=== PATIENT | female | born 1980 | race Caucasian/White ===

== ENCOUNTER → 2016-05-26 | Outpatient (CLI) | payer BC | END | disposition home or self-care (01) | LOC: LABWHC1 14:41 | PROVIDERS: ATTEND Otolaryngology | DX: T78.40XD Allergy, unspecified, subsequent encounter (principal) | CPT/HCPCS: 36415 ==

== ENCOUNTER 2017-07-01 18:01 | Emergency (ER) | payer OTHER, BC ==
[2017-07-01 18:07] VITALS: BP 157/100; PULSE 89; RESP 20; TEMP 98
[2017-07-01] MEDS ORDERED: IBUPROFEN 600 MG TAB PO STA (19:50)
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
== END 2017-07-01 21:23 | disposition home or self-care (01) ==
LOC: EC 18:01
DX: S29.012A Strain of muscle and tendon of back wall of thorax, initial encounter (principal); V47.6XXA Car passenger injured in collision with fixed or stationary object in traffic accident, initial encounter; Y92.411 Interstate highway as the place of occurrence of the external cause
CPT/HCPCS: 72050; 72072; 99283

== ENCOUNTER → 2019-10-03 | Outpatient (CLI) | payer BC ==
--- NOTE | 2019-10-17 07:51 | MM ---
Reason for exam: screening (asymptomatic). Last mammogram was performed 6 years and 9 months ago. History: Patient history of other cancer and is nulliparous. Took hormonal contraceptives for 20 years. Physical Findings: A clinical breast exam by your physician is recommended on an annual basis and results should be correlated with mammographic findings. MG 3D Screening Mammo W/Cad Bilateral CC and MLO view(s) were taken. Prior study comparison: January 12, 2013, mammogram, performed at [facility]. The breast tissue is heterogeneously dense. This may lower the sensitivity of mammography. No significant changes when compared with prior studies. ASSESSMENT: Benign, BI-RAD 2 RECOMMENDATION: Routine screening mammogram of both breasts in 1 year.
== END | disposition home or self-care (01) ==
LOC: RADMAMWWP 12:33
PROVIDERS: ATTEND Obstetrics & Gynecology
DX: Z12.31 Encounter for screening mammogram for malignant neoplasm of breast (principal)
CPT/HCPCS: 77063; 77067

== ENCOUNTER → 2020-07-28 | Outpatient (CLI) | payer BC ==
--- NOTE | 2020-07-31 06:51 | US ---
EXAMINATION TYPE: US thyroid st tissue head/neck DATE OF EXAM: 07/28/2020 COMPARISON: NONE CLINICAL HISTORY: R22.1 Bilateral neck masses. Bilateral submandibular glands appear enlarged per pat ient. 2nd Covid vaccine end of May. Bilateral submandibular glands scanned. Right = 3.6 x 1.5 cm. Left= 3.1 x 1.4 cm. Lymph nodes seen in bilateral neck. Largest measured. Right = 1.5 x 0.7 x 0.5 cm. Left = 1.2 x 1.1 x 0.6 cm. IMPRESSION: As above, findings suggest reactive adenopathy given symmetrical prominence of bilateral lymph nodes with retention of normal fatty hilum. Consider short-term ultrasound follow-up if sympto ms do not resolve or if felt to worsen.
== END | disposition home or self-care (01) ==
LOC: RADUSWWP 12:18
PROVIDERS: ATTEND Otolaryngology
DX: R22.1 Localized swelling, mass and lump, neck (principal)
CPT/HCPCS: 76536

== ENCOUNTER → 2020-12-15 | Outpatient (CLI) | payer BC ==
--- NOTE | 2020-12-16 07:47 | US ---
EXAMINATION TYPE: US thyroid st tissue head/neck DATE OF EXAM: 12/15/2020 COMPARISON: 07/28/2010 CLINICAL HISTORY: R22.1 SWELLING MASS LUMP IN NECK. Follow up lymph nodes. Patient states no concern s today. Bilateral neck scanned. Largest lymph node in right neck, short axis= 0.9 cm and cortex = 0.37 cm. Largest lymph node in left neck, short axis= 0.9 cm. IMPRESSION: 1. Lymphadenopathy left neck
== END | disposition home or self-care (01) ==
LOC: RADUSWWP 16:04
PROVIDERS: ATTEND Otolaryngology
DX: R59.0 Localized enlarged lymph nodes (principal)
CPT/HCPCS: 76536

== ENCOUNTER → 2021-08-05 | Outpatient (CLI) | payer BC ==
--- NOTE | 2021-08-07 12:59 | MM ---
Reason for exam: screening (asymptomatic). Last mammogram was performed 1 year and 10 months ago. History: Patient has history of other cancer at age 31 and is nulliparous. Took hormonal contraceptives for 20 years. Physical Findings: A clinical breast exam by your physician is recommended on an annual basis and results should be correlated with mammographic findings. MG 3D Screening Mammo W/Cad Bilateral CC and MLO view(s) were taken. Prior study comparison: October 03, 2019, bilateral MG 3d screening mammo w/cad. The breast tissue is heterogeneously dense. This may lower the sensitivity of mammography. There is chronic nodularity in the right breast. Increasing subareolar left breast density. New central inner right CC asymmetric density at a middle depth. ASSESSMENT: Incomplete: need additional imaging evaluation, BI-RAD 0 RECOMMENDATION: Special view mammogram of both breasts. (3D) If lesion persists on supplemental views, image directed ultrasound is recommended. [facility] will attempt to contact patient to return for supplemental views and ultrasound if indicated.
== END | disposition home or self-care (01) ==
LOC: RADMAMWWP 15:53
PROVIDERS: ATTEND Obstetrics & Gynecology
DX: Z12.31 Encounter for screening mammogram for malignant neoplasm of breast (principal)
CPT/HCPCS: 77063; 77067

== ENCOUNTER → 2022-01-11 | Outpatient (CLI) | payer BC ==
--- NOTE | 2022-01-12 10:37 | US ---
EXAMINATION TYPE: US thyroid st tissue head/neck DATE OF EXAM: 01/11/2022 COMPARISON: 12/15/2020 CLINICAL HISTORY: 41-year-old female R22.1 MASS, E04.1 THYROID NODULE. Follow up right neck lymph nod e and possible new left thyroid nodule and left thyroidomegaly per order. TECHNIQUE: Multiple sonographic images of the thyroid gland are obtained. FINDINGS: GLAND SIZE: Right Lobe: 4.7 x 1.9 x 1.7 cm Overall Parenchyma: homogenous Left Lobe: 3.9 x 1.7 x 1.2 cm Overall Parenchyma: homogeneous Isthmus Thickness: 0.3 cm NODULES RIGHT: # of nodules measured on right: 0 LEFT: # of nodules measured on left: 0 ISTHMUS: # of nodules measured in the isthmus: 0 Bilateral neck scanned. Left lymph node seen superior to thyroid gland measuring 2.2 x 1.0 x 5.0 cm. Uniform cortical thickness of 4 mm. This is in comparison to 2.2 x 1.3 x 0.8 cm. Similar degree of c ortical thickening. Not significantly changed from prior exam. IMPRESSION: 1. No discrete thyroid nodule. 2. Stable borderline sized 1 cm short axis lymph node along the left side of the neck. Likely benign given stability; probably reactive/post inflammatory. Clinical follow-up can be performed.
== END | disposition home or self-care (01) ==
LOC: RADUSWWP 15:48
PROVIDERS: ATTEND Otolaryngology
DX: E04.1 Nontoxic single thyroid nodule (principal); R22.1 Localized swelling, mass and lump, neck
CPT/HCPCS: 76536

== ENCOUNTER → 2022-08-06 | Outpatient (CLI) | payer BC ==
--- NOTE | 2022-08-09 19:03 | MM ---
Reason for Exam: Screening (asymptomatic). Last screening mammogram was performed 12 month(s) ago. Patient History: Menarche at age 11. Patient has no children. Premenopausal. Other cancer, age 31. Patient used Hormonal Contraceptives for 20 years. Maternal grandmother had breast cancer at or over age 50. Risk Values: Adriana 5 year model risk: 0.8%. NCI Lifetime model risk: 10.8%. Prior Study Comparison: 01/12/2013 Screening Mammogram, [facility] . 10/03/2019 Bilateral Screening Mammogram, [facility]. 08/05/2021 Bilateral Screening Mammogram, [facility]. 08/11/2021 Bilateral MG 3D work up w/cad [facility], [facility]. Tissue Density: The breast tissue is heterogeneously dense. This may lower the sensitivity of mammography. Findings: Analyzed By CAD. Areas of bilateral asymmetric density are unchanged. Low axillary tail lymph node on the right is unchanged. There is no suspicious group of microcalcifications or new suspicious mass in either breast. Overall Assessment: Benign, BI-RAD 2 Management: Screening Mammogram of both breasts in 1 year. . Patient should continue monthly self-breast exams. A clinical breast exam by your physician is recommended on an annual basis. This exam should not preclude additional follow-up of suspicious palpable abnormalities. Note on Adriana scores and lifetime risk: 1. A Adriana score greater than 3% is considered moderate risk. If this is the case, consider specialist referral to assess eligibility for a risk reducing agent. 2. If overall lifetime risk for the development of breast cancer is 20% or higher, the patient may qualify for future screening with alternating mammogram and breast MRI. Electronically signed and approved by: Daina Jacques M.D. Radiologist
== END | disposition home or self-care (01) ==
LOC: RADMAMWWP 09:44
PROVIDERS: ATTEND Obstetrics & Gynecology
DX: Z12.31 Encounter for screening mammogram for malignant neoplasm of breast (principal); Z80.3 Family history of malignant neoplasm of breast
CPT/HCPCS: 77063; 77067

== ENCOUNTER → 2023-11-01 | Outpatient (CLI) | payer BC ==
--- NOTE | 2023-11-29 08:42 | MM ---
Reason for Exam: Screening (asymptomatic). Last mammogram was performed 1 year(s) and 3 month(s) ago. Patient History: Menarche at age 11. Patient has no children. Premenopausal. Other cancer, age 31. Patient used Hormonal Contraceptives for 20 years. Maternal grandmother had breast cancer at or over age 50. Risk Values: Adriana 5 year model risk: 0.9%. NCI Lifetime model risk: 10.7%. Prior Study Comparison: 08/05/2021 Bilateral Screening Mammogram, [facility]. 08/11/2021 Bilateral MG 3D work up w/cad [facility], [facility]. 08/06/2022 Bilateral MG 3D screening mammo w/cad, [facility]. Tissue Density: The breasts are heterogeneously dense, which may obscure small masses. Findings: Analyzed By CAD. Right breast: There is no suspicious group of microcalcifications or new suspicious mass. Left breast: There is no suspicious group of microcalcifications or new suspicious mass. Overall Assessment: Negative, BI-RAD 1 Management: Screening Mammogram of both breasts in [address] [facility] will attempt to contact patient to return for supplemental views and ultrasound if indicated. Patient should continue monthly self-breast exams. A clinical breast exam by your physician is recommended on an annual basis. This exam should not preclude additional follow-up of suspicious palpable abnormalities. Note on Adriana scores and lifetime risk: 1. A Adriana score greater than 3% is considered moderate risk. If this is the case, consider specialist referral to assess eligibility for a risk reducing agent. 2. If overall lifetime risk for the development of breast cancer is 20% or higher, the patient may qualify for future screening with alternating mammogram and breast MRI. Electronically signed and approved by: Marcus Castro DO
== END | disposition home or self-care (01) ==
LOC: RADMAMWWP 16:45
PROVIDERS: ATTEND Obstetrics & Gynecology
DX: Z12.31 Encounter for screening mammogram for malignant neoplasm of breast (principal); R92.333 Mammographic heterogeneous density, bilateral breasts; Z80.3 Family history of malignant neoplasm of breast
CPT/HCPCS: 77063; 77067